=== PATIENT | female | born 1955 | race Caucasian/White ===

== ENCOUNTER → 2018-02-02 11:49 | Outpatient (CLI) | payer OTHER, MEDICAID, SELFPAY ==
[2018-02-02 13:01] LABS: Hemoglobin A1C% w Est Avg Glu 5.7 % (4.0-6.0)
[2018-02-02 13:08] LABS: Alanine Aminotransferase 34 IU/L (9-52); Albumin 4.4 g/dL (3.5-5.0); Albumin Globulin Ratio 1.6 (1.0-2.8); Alkaline Phosphatase 89 U/L (38-126); Aspartate Aminotransferase 23 IU/L (14-36); Bilirubin Total 0.5 mg/dL (0.2-1.3); Blood Urea Nitrogen 28 mg/dL (7-17); Carbon Dioxide 28 mmol/L (22-32); Chloride 103 mmol/L (98-107); Cholesterol 174 mg/dL (140-199); Estimated Glomerular Filt Rate 37.9 mL/min (>60); Globulin 2.8 g/dL (1.7-4.1); Glucose 103 mg/dL (80-110); HDL Cholesterol 43 mg/dL (40-60); HEMOLYSIS < 15 (0-50); LDL Cholesterol Calculated 104 mg/dL (<100); Potassium 3.9 mmol/L (3.4-5.1); Sodium 143 mmol/L (137-145); Total Protein 7.2 g/dL (6.3-8.2); Triglycerides 133 mg/dL (35-150)
[2018-02-02 14:43] LABS: Creatinine Urine Random 253.5 mg/dL
[2018-02-02 14:44] LABS: Microalbumi Creatinin Ratio Ur 63.5 ug/mg CR (<30); Microalbumin Urine Random 16.1 mg/dL (0-1.6)
== END ==
PROVIDERS: PCP Family Medicine; Visit Provider Family Medicine
DX: E66.01 Morbid (severe) obesity due to excess calories (principal); E66.8 Other obesity; I10 Essential (primary) hypertension; J30.89 Other allergic rhinitis; J44.9 Chronic obstructive pulmonary disease, unspecified; J98.4 Other disorders of lung; R73.03 Prediabetes
CPT/HCPCS: 36415; 80053; 80061; 82043; 82570; 83036

== ENCOUNTER → 2018-05-23 16:07 | Outpatient (CLI) | payer OTHER, MEDICAID, SELFPAY ==
[2018-05-23 17:31] LABS: Blood Urea Nitrogen 18 mg/dL (7-17); Calcium 9.6 mg/dL (8.4-10.2); Carbon Dioxide 29 mmol/L (22-32); Chloride 105 mmol/L (98-107); Estimated Glomerular Filt Rate 45.2 mL/min (>60); Glucose 95 mg/dL (80-110); HEMOLYSIS < 15 (0-50); Potassium 4.7 mmol/L (3.4-5.1); Sodium 143 mmol/L (137-145)
== END ==
PROVIDERS: PCP Family Medicine; Visit Provider Family Medicine
DX: N18.3 Chronic kidney disease, stage 3 (moderate) (principal)
CPT/HCPCS: 36415; 80048

== ENCOUNTER → 2018-09-07 12:39 | Outpatient (CLI) | payer MEDICARE, MEDICAID, SELFPAY ==
[2018-09-07 12:57] LABS: Bacteria Urine None Seen; RBC Urine None Seen (0-5/HPF)
[2018-09-07 13:46] LABS: Appearance Urine UA CLEAR; Bilirubin Urine UA NEGATIVE (NEGATIVE); Color Urine UA YELLOW; Glucose Urine UA NEGATIVE (Negative); Ketones Urine UA TRACE (NEGATIVE); Leukocyte Esterase Urine UA TRACE (NEGATIVE); Nitrite Urine UA NEGATIVE (Negative); Occult Blood Urine UA NEGATIVE (Negative); Protein Urine UA NEGATIVE (Negative); Urobilinogen Urine UA 0.2 E.U./dL (0.2); pH Urine UA 5.5 (4.5-8.0)
[2018-09-07 14:13] LABS: Creatinine Urine Random 208.8 mg/dL
[2018-09-07 14:18] LABS: Microalbumi Creatinin Ratio Ur 6.2 ug/mg CR (<30); Microalbumin Urine Random 1.3 mg/dL (0-1.6)
[2018-09-07 14:30] LABS: Amorphous Sediment Urine 2+; Culture Indicated Urine Cult Not Indicated; Granular Casts Urine 0-1/LPF; Hyaline Casts Urine 0-1/LPF; Mucus Urine 1+ (Negative); Squamous Epithelial Cell Urine 5-10 /HPF (0-5/HPF); Transitional Epi Cells Urine 0-1/HPF (0-5/HPF); WBC Urine 1-5/HPF (0-5/HPF)
== END ==
PROVIDERS: PCP Family Medicine; Visit Provider Family Medicine
DX: I12.9 Hypertensive chronic kidney disease with stage 1 through stage 4 chronic kidney disease, or unspecified chronic kidney disease (principal); N18.3 Chronic kidney disease, stage 3 (moderate); R30.0 Dysuria
CPT/HCPCS: 81001; 82043; 82570

== ENCOUNTER → 2018-10-12 15:55 | Outpatient (CLI) | payer MEDICARE, MEDICAID, SELFPAY ==
[2018-10-12 16:44] LABS: Hemoglobin A1C% w Est Avg Glu 5.5 % (4.0-6.0)
[2018-10-12 17:20] LABS: BUN Creatinine Ratio 24.2 (6-22); Blood Urea Nitrogen 29 mg/dL (7-17); Calcium 9.3 mg/dL (8.4-10.2); Carbon Dioxide 24 mmol/L (22-32); Chloride 105 mmol/L (98-107); Estimated Glomerular Filt Rate 45.1 mL/min (>60); Glucose 99 mg/dL (80-110); Potassium 4.6 mmol/L (3.4-5.1); Sodium 140 mmol/L (137-145)
[2018-10-12 17:21] LABS: HEMOLYSIS 52 (0-50)
== END ==
PROVIDERS: PCP Family Medicine; Visit Provider Family Medicine
DX: I12.9 Hypertensive chronic kidney disease with stage 1 through stage 4 chronic kidney disease, or unspecified chronic kidney disease (principal); N18.3 Chronic kidney disease, stage 3 (moderate)
CPT/HCPCS: 36415; 80048; 83036

== ENCOUNTER → 2019-01-17 14:46 | Outpatient (CLI) | payer MEDICARE, SELFPAY ==
[2019-01-17 15:21] LABS: BUN Creatinine Ratio 19.3 (6-22); Blood Urea Nitrogen 27 mg/dL (7-17); Calcium 9.9 mg/dL (8.4-10.2); Carbon Dioxide 28 mmol/L (22-32); Chloride 103 mmol/L (98-107); Estimated Glomerular Filt Rate 37.7 mL/min (>60); Glucose 100 mg/dL (80-110); HEMOLYSIS < 15 (0-50); Sodium 142 mmol/L (137-145)
[2019-01-17 15:22] LABS: Potassium 5.7 mmol/L (3.4-5.1)
== END ==
PROVIDERS: PCP Family Medicine; Visit Provider Family Medicine
DX: I10 Essential (primary) hypertension (principal); N18.3 Chronic kidney disease, stage 3 (moderate)
CPT/HCPCS: 36415; 80048

== ENCOUNTER → 2019-02-05 12:15 | Outpatient (CLI) | payer MEDICARE, SELFPAY ==
[2019-02-05 12:50] LABS: BUN Creatinine Ratio 16.2 (6-22); Blood Urea Nitrogen 21 mg/dL (7-17); Calcium 9.7 mg/dL (8.4-10.2); Carbon Dioxide 30 mmol/L (22-32); Chloride 102 mmol/L (98-107); Estimated Glomerular Filt Rate 41.1 mL/min (>60); Glucose 122 mg/dL (80-110); HEMOLYSIS < 15 (0-50); Potassium 5.2 mmol/L (3.4-5.1); Sodium 141 mmol/L (137-145)
== END ==
PROVIDERS: PCP Family Medicine; Visit Provider Family Medicine
DX: E87.5 Hyperkalemia (principal); I10 Essential (primary) hypertension
CPT/HCPCS: 36415; 80048

== ENCOUNTER → 2019-02-22 13:24 | Outpatient (CLI) | payer MEDICARE, SELFPAY ==
[2019-02-22 13:58] LABS: Blood Urea Nitrogen 24 mg/dL (7-17); Calcium 9.4 mg/dL (8.4-10.2); Carbon Dioxide 27 mmol/L (22-32); Chloride 103 mmol/L (98-107); Estimated Glomerular Filt Rate 45.1 mL/min (>60); Glucose 114 mg/dL (80-110); HEMOLYSIS < 15 (0-50); Sodium 139 mmol/L (137-145)
== END ==
PROVIDERS: PCP Family Medicine; Visit Provider Family Medicine
DX: I10 Essential (primary) hypertension (principal); N18.3 Chronic kidney disease, stage 3 (moderate)
CPT/HCPCS: 36415; 80048

== ENCOUNTER → 2019-05-28 15:53 | Outpatient (CLI) | payer MEDICARE, SELFPAY ==
[2019-05-28 16:20] LABS: Add Manual Diff / Slide Review NO; Basophils Absolute Auto 0 /uL (0-100); Basophils Percent Auto 0.7 % (0-2); Eosinophils Absolute Auto 200 /uL (0-450); Eosinophils Percent Auto 3.7 % (2-4); Hematocrit 43.4 % (36-46); Hemoglobin 14.5 g/dL (12.0-16.0); Lymphocytes Absolute Auto 1600 /uL (1100-4500); Lymphocytes Percent Auto 25.1 % (25-40); Mean Corpuscular HGB Conc 33.4 % (30-36); Mean Corpuscular Hemoglobin 29.5 PG (26-34); Mean Corpuscular Volume 88.4 fL (80-100); Monocytes Absolute Auto 400 /uL (0-900); Monocytes Percent Auto 6.5 % (3-14); Neutrophils Absolute Auto 4200 /uL (1500-7000); Platelet Count 278 X10^3/uL (150-400); Red Blood Cell Count 4.92 X10^6/uL (4.0-5.2); Red Cell Distribution Width 13.6 % (11.6-14.8); White Blood Cell Count 6.6 X10^3/uL (4.5-11.0)
[2019-05-28 16:50] LABS: Alanine Aminotransferase 28 IU/L (<35); Albumin 4.3 g/dL (3.5-5.0); Albumin Globulin Ratio 1.5 (1.0-2.8); Alkaline Phosphatase 108 U/L (38-126); Aspartate Aminotransferase 32 IU/L (14-36); BUN Creatinine Ratio 17.1 (6-22); Bilirubin Total 0.5 mg/dL (0.2-1.3); Blood Urea Nitrogen 24 mg/dL (7-17); Calcium 9.8 mg/dL (8.4-10.2); Carbon Dioxide 28 mmol/L (22-32); Chloride 100 mmol/L (98-107); Cholesterol 202 mg/dL (140-199); Estimated Glomerular Filt Rate 37.7 mL/min (>60); Globulin 2.9 g/dL (1.7-4.1); Glucose 117 mg/dL (80-110); HDL Cholesterol 40 mg/dL (40-60); HEMOLYSIS < 15 (0-50); LDL Cholesterol Calculated 119 mg/dL (<100); Potassium 4.7 mmol/L (3.4-5.1); Sodium 139 mmol/L (137-145); Total Protein 7.2 g/dL (6.3-8.2); Triglycerides 215 mg/dL (35-150)
[2019-05-28 18:39] LABS: Creatinine Urine Random 188.2 mg/dL
[2019-05-28 18:43] LABS: Microalbumi Creatinin Ratio Ur 5.3 ug/mg CR (<30)
== END ==
PROVIDERS: PCP Family Medicine; Visit Provider Family Medicine
DX: E66.01 Morbid (severe) obesity due to excess calories (principal); I10 Essential (primary) hypertension; N18.3 Chronic kidney disease, stage 3 (moderate); R73.03 Prediabetes
CPT/HCPCS: 36415; 80053; 80061; 82043; 82570; 85025

== ENCOUNTER → 2019-06-25 14:01 | Outpatient (CLI) | payer MEDICARE, SELFPAY | PROVIDERS: PCP Family Medicine; Referring Provider Family Medicine; Visit Provider Family Medicine | DX: M85.852 Other specified disorders of bone density and structure, left thigh (principal); Z78.0 Asymptomatic menopausal state; Z82.62 Family history of osteoporosis; Z87.891 Personal history of nicotine dependence | CPT/HCPCS: 77080 ==

== ENCOUNTER → 2020-06-01 16:15 | Outpatient (CLI) | payer MEDICARE, SELFPAY ==
[2020-06-01 17:21] LABS: BUN Creatinine Ratio 18.3 (6-22); Blood Urea Nitrogen 22 mg/dL (7-17); Calcium 9.4 mg/dL (8.4-10.2); Carbon Dioxide 29 mmol/L (22-32); Chloride 107 mmol/L (98-107); Estimated Glomerular Filt Rate 44.9 mL/min (>60); Glucose 102 mg/dL (80-110); HEMOLYSIS < 15 (0-50); Potassium 4.2 mmol/L (3.4-5.1); Sodium 141 mmol/L (137-145)
== END ==
PROVIDERS: PCP Family Medicine; Referring Provider Family Medicine; Visit Provider Family Medicine
DX: I10 Essential (primary) hypertension (principal); N18.30 Chronic kidney disease, stage 3 unspecified
CPT/HCPCS: 36415; 80048

== ENCOUNTER → 2020-07-10 14:14 | Outpatient (CLI) | payer MEDICARE, SELFPAY ==
[2020-07-10] MEDS: COVID-19 VACC, Ad26(JANSSEN)/PF 0.5 ML IM (14:21)
== END ==
PROVIDERS: PCP Family Medicine; Visit Provider Internal Medicine
DX: Z23 Encounter for immunization (principal)
CPT/HCPCS: 0031A; 91303

== ENCOUNTER → 2020-09-23 12:10 | Outpatient (CLI) | payer MEDICARE, SELFPAY ==
--- NOTE | 2020-09-23 12:13 | DI.RAD.S_ITS ---
PROCEDURE: XR FACIAL BONES <3V INDICATIONS: fall onto face continues to be painful TECHNIQUE: 3 views of the facial bones were acquired. COMPARISON: None. FINDINGS: Sinuses: Visualized sinuses demonstrate no air-fluid levels or mucosal thickening. Bones: No fractures identified. No suspicious bony lesions. Orbital rims and zygomatic arches appear intact. Soft tissues: No suspicious soft tissue densities. IMPRESSION: No obvious fracture. If indicated consider CT maxillofacial. Dictated by: Marcelino Barragan M.D. on 09/23/2020 at 12:52 Approved by: Marcelino Barragan M.D. on 09/23/2020 at 12:54
== END ==
LOC: LAB 12:12 → RAD 12:13
PROVIDERS: PCP Family Medicine; Referring Provider Family Medicine; Visit Provider Family Medicine
DX: S09.93XA Unspecified injury of face, initial encounter (principal); R51.9 Headache, unspecified; W10.8XXA Fall (on) (from) other stairs and steps, initial encounter
CPT/HCPCS: 70140

== ENCOUNTER → 2022-06-01 08:53 | Outpatient (CLI) | payer MEDICARE, SELFPAY ==
--- NOTE | 2022-06-01 08:55 | DI.RAD.S_ITS ---
PROCEDURE: XR HIP W PEL IF DONE LT 2V INDICATIONS: Left hip pain TECHNIQUE: Two views of the hip were acquired. COMPARISON: None. FINDINGS: Mild left hip joint space narrowing with marginal osteophytosis. No suspicious or acute bone lesion. Large calcification projecting over the midline pelvis may represent a bladder calculus. IMPRESSION: Mild left hip osteoarthritis. Suspected bladder calculus. Dictated by: Lennox Griffiths M.D. on 06/01/2022 at 12:16 Approved by: Lennox Griffiths M.D. on 06/01/2022 at 12:17
== END ==
PROVIDERS: PCP Family Medicine; Referring Provider Nurse Practitioner Family; Visit Provider Nurse Practitioner Family
DX: M25.552 Pain in left hip (principal); M16.12 Unilateral primary osteoarthritis, left hip
CPT/HCPCS: 73502

== ENCOUNTER → 2022-06-08 08:46 | Outpatient (CLI) | payer MEDICARE, SELFPAY ==
[2022-06-08 09:59] LABS: Add Manual Diff / Slide Review NO; Basophils Absolute Auto 100 /uL (0-100); Eosinophils Absolute Auto 300 /uL (0-450); Eosinophils Percent Auto 3.6 % (2-4); Hematocrit 43.3 % (36-46); Hemoglobin 14.1 g/dL (12.0-16.0); Lymphocytes Absolute Auto 1400 /uL (1100-4500); Lymphocytes Percent Auto 16.9 % (25-40); Mean Corpuscular HGB Conc 32.6 % (30-36); Mean Corpuscular Hemoglobin 28.7 PG (26-34); Mean Corpuscular Volume 87.8 fL (80-100); Monocytes Absolute Auto 600 /uL (0-900); Monocytes Percent Auto 7.5 % (3-14); Neutrophils Absolute Auto 5700 /uL (1500-7000); Platelet Count 254 X10^3/uL (150-400); Red Blood Cell Count 4.93 X10^6/uL (4.0-5.2); Red Cell Distribution Width 14.4 % (11.6-14.8); White Blood Cell Count 8.1 X10^3/uL (4.5-11.0)
[2022-06-08 10:17] LABS: Hemoglobin A1C% w Est Avg Glu 5.6 % (4.0-6.0)
[2022-06-08 10:21] LABS: Alanine Aminotransferase 16 IU/L (<35); Albumin Globulin Ratio 1.5 (1.0-2.8); Alkaline Phosphatase 85 U/L (38-126); Aspartate Aminotransferase 24 IU/L (14-36); BUN Creatinine Ratio 15.9 (6-22); Bilirubin Total 0.5 mg/dL (0.2-1.3); Blood Urea Nitrogen 18 mg/dL (7-17); Calcium 9.3 mg/dL (8.4-10.2); Carbon Dioxide 28 mmol/L (22-32); Chloride 106 mmol/L (98-107); Cholesterol 163 mg/dL (140-199); Estimated Glomerular Filt Rate 53 mL/min (>60); Globulin 2.7 g/dL (1.7-4.1); Glucose 100 mg/dL (80-110); HDL Cholesterol 48 mg/dL (40-60); HEMOLYSIS 15 (0-50); LDL Cholesterol Calculated 88 mg/dL (<100); Potassium 4.7 mmol/L (3.4-5.1); Sodium 144 mmol/L (137-145); Total Protein 6.7 g/dL (6.3-8.2); Triglycerides 137 mg/dL (35-150)
== END ==
PROVIDERS: PCP Family Medicine; Referring Provider Family Medicine; Visit Provider Family Medicine
DX: E66.01 Morbid (severe) obesity due to excess calories (principal); R73.03 Prediabetes; I10 Essential (primary) hypertension
CPT/HCPCS: 36415; 80053; 80061; 83036; 85025

== ENCOUNTER → 2022-07-08 11:23 | Outpatient (CLI) | payer MEDICARE, SELFPAY ==
--- NOTE | 2022-07-08 | DI.MG.S_ITS ---
BILATERAL DIGITAL SCREENING MAMMOGRAM 3D/2D WITH CAD: 07/08/2022 CLINICAL: Routine screening. Family history of breast cancer. Comparison is made to exams dated: 08/23/2016 mammogram and 08/12/2014 mammogram - [facility]. There are scattered areas of fibroglandular density in both breasts (category b / 25%-50% glandular tissue). Current study was also evaluated with a Computer Aided Detection (CAD) system. No significant masses, calcifications, or other findings are seen in either breast. There has been no significant interval change. IMPRESSION: NEGATIVE There is no mammographic evidence of malignancy. A 1 year screening mammogram is recommended. Based on the Tyrer Cuzick model (a risk assessment model) the patient's lifetime risk is 7.5% and her 10 year risk is 4.2%. According to the ACR, ACS, and NCCN guidelines, an annual breast MRI exam along with mammogram is recommended if the patient's lifetime risk is 20% or greater. This exam was interpreted at Station ID: [id number]. NOTE: For mammograms, a report in lay terms will be sent to the patient. Approximately 15% of breast malignancies will not be visualized mammographically. In the management of a palpable breast mass, a negative mammogram must not discourage biopsy of a clinically suspicious lesion. Electronically Signed By: Doretha verde/michele:07/08/2022 14:06:52 letter sent: Normal Exam ACR BI-RADS Category 1: Negative [id number]
--- NOTE | 2022-07-08 12:32 | DI.DEXA.S_ITS ---
Indication: osteopenia; prior fracture; Referring Provider: [facility] Study: Bone densitometry was performed. Exam Date: July 08, 2022 Accession number: [id number] Bone Density: Region BMD T-score Z-score Classification AP Spine(L1-L4) 1.101 0.5 2.5 Normal Femoral Neck (Left) 0.602 -2.2 -0.5 Osteopenia Total Hip (Left) 0.777 -1.4 0.1 Osteopenia Femoral Neck (Right) 0.685 -1.5 0.2 Osteopenia Total Hip (Right) 0.782 -1.3 0.1 Osteopenia Total Hip Mean 0.779 -1.4 0.1 Osteopenia World Health Organization criteria for BMD impression classify patients as: Normal (T-score at or above -1.0), Osteopenia (T-score between -1.0 and -2.5), or Osteoporosis (T-score at or below -2.5). 10-year Fracture Risk: FRAX not reported because: Prior hip or vertebral fracture Previous Exams: -- Region Exam Age BMD T-score BMD Change BMD Change Date g/cm2 vs Baseline vs Previous -- AP Spine (L1-L4) 07/08/2022 66 1.101 0.5 -0.053 (-4.6%)# -0.053 (-4.6%)# 06/25/2019 63 1.155 1.0 Total Hip(Left) 07/08/2022 66 0.777 -1.4 -0.031 (-3.9%)# -0.031 (-3.9%)# 06/25/2019 63 0.809 -1.1 Total Hip(Right) 07/08/2022 66 0.782 -1.3 0.021 (2.8%)# 0.021 (2.8%)# 06/25/2019 63 0.760 -1.5 -- *Denotes significance at 95% confidence level, LSC for AP Spine = 0.022 g/cm2, LSC for Total Hip = 0.027 g/cm2 # Denotes dissimilar scan types or analysis methods Impression: The patient has low bone mass, based on the Left Femoral Neck T-score. The patient has risk factors, including: previous fracture. No significant bone loss was observed. Discussion: INCREASED RISK OF FRACTURE DUE TO HISTORY OF FRACTURE. The patient's previous fracture puts the patient at high risk of a future fracture. In untreated patients, the risk of osteoporotic fracture increases approximately two-fold for each 1.0 SD decrease in T-score. Low bone density is not the only risk factor for fracture; also consider factors such as patient's age, frailty or poor health, risk of falling, risk of injury, previous osteoporotic fracture, family history of osteoporosis, cigarette smoking, low body weight, etc. Not everyone with a low trauma fracture has osteoporosis; osteomalacia and other metabolic bone disorders should also be considered. Patients who have osteoporosis should be evaluated for specific diseases and conditions (secondary causes) that may cause or contribute to bone loss and fracture risk. National Osteoporosis Foundation (NOF) recommends pharmacologic intervention for patients with a prior hip or vertebral fracture regardless of BMD T-score. The patient should follow a healthful lifestyle (good nutrition with adequate calcium and vitamin D, and appropriate weight-bearing exercise). Follow-Up: Consider a repeat BMD and Vertebral Fracture Assessment (VFA) exam in 2 years or sooner if medically necessary, to reassess this patient's status. Reported by: Mariam Chaudhry M.D. on 07/08/2022 12:49:00 PM.
== END ==
PROVIDERS: Family Provider Family Medicine; PCP Family Medicine; Referring Provider Family Medicine; Visit Provider Family Medicine
DX: Z12.31 Encounter for screening mammogram for malignant neoplasm of breast (principal); M85.852 Other specified disorders of bone density and structure, left thigh; Z13.820 Encounter for screening for osteoporosis; Z80.3 Family history of malignant neoplasm of breast; Z78.0 Asymptomatic menopausal state; Z87.311 Personal history of (healed) other pathological fracture
CPT/HCPCS: 77063; 77067; 77080

== ENCOUNTER 2022-08-02 11:15 | Outpatient (RCR) | payer MEDICARE, SELFPAY ==
--- NOTE | 2022-07-07 12:24 | PT.OIE ---
Current Diagnoses Pain in left hip (07/07/22) Past Medical History (Last Updated 07/02/22 @ 18:24 by Juventino Espinosa DO) Cervical spine disease Concussion 0 Hypertension (11/26/12) Morbid obesity with body mass index (BMI) of 40.0 to 49.9 (06/09/14) Pancreatitis, gallstone Positive FIT (fecal immunochemical test) Prediabetes (11/13/15) Past Surgical History (Last Updated 02/06/18 @ 13:06 by Meme Lam) History of tonsillectomy Normal Papanicolaou smear Status post arthroscopy Status post endoscopic retrograde cholangiopancreatography Status post laparoscopic cholecystectomy Status post laparotomy Visit Care Team Role Provider Type Juventino Espinosa DO Family Provider Physician Primary Care Provider Specialty: [facility] Address: [address] [place] [address], [facility] Email: [email or web address] Attending Provider Advanced Supervisor [employer] Referring Provider Specialty: [facility] Address: [address] [place] [address], [facility] Phone: Fax: Email: [email or web address] Physical Therapy Initial Evaluation PT-OP-A Visit Information Start: 07/07/22 09:13 Freq: Status: Active Protocol: Document 07/07/22 09:17 TH (Rec: 07/07/22 12:24 TH [id number]) Out-Patient Physical Therapy Visit Information Visit Information Visit Type Initial Evaluation Visit Start Time 09:15 Visit Stop Time 10:00 Total Visit Minutes 45 Visit Number 1 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 Pt had a serious fall over a rail resulting in t spine fractures and shoulder injury ( 2002). Shortly afterwards pt began to have bilateral hip pain. Currently pt has difficulty bending forward, ER /flexing / abd. ( in side lying) hip and hip extension in supine. Left hip pain travels from joint to groin. cleared pt. for PT. Xray neg for fx. Pt reports pain has improved since initial onset. Pt having a bone scan this week. Prior Treatments and Tests Xray left hip 06/01/22 FINDINGS: Mild left hip joint space narrowing with marginal osteophytosis. No suspicious or acute bone lesion. Large calcification projecting over the midline pelvis may represent a bladder calculus. IMPRESSION: Mild left hip osteoarthritis. Prior Functional Status Baseline Function- ADL's Independent Baseline Function- Mobility Independent Current Functional Impairments (Reported) Functional Limitations- ADL's Difficult bending forward Functional Limitations- Mobility/Gait Difficult placing full weight through left LE leading to limp Transfers difficult Functional Limitations- Other Recommended pt use FWW for now to prevent falls and to allow left hip to heal. PT-OP-F Manual Assessment Start: 07/07/22 09:13 Freq: Status: Active Protocol: Document 07/07/22 09:17 TH (Rec: 07/07/22 12:24 TH [id number]) Manual Assessments Soft Tissue Assessment Soft Tissue Mobility Assessment Palpation: Tender tfl, IT band, superior rectus femoris Pt unable to tolerate positions for special tests Test for hip labral tear when pt able to tolerate PT-OP-K Range of Motion Start: 07/07/22 09:13 Freq: Status: Active Protocol: Document 07/07/22 09:17 TH (Rec: 07/07/22 12:24 TH [id number]) Hip Goniometric Range of Motion Hip left Testing Position Sitting Flexion w/Knee Flexed 30 Abduction 20 Comments left ankle increased pronation , right leg functionally shorter than left, right hip ant rot. All left hip movements difficult with AROM PT-OP-R Modalities Start: 07/07/22 09:13 Freq: Status: Active Protocol: Document 07/07/22 09:17 TH (Rec: 07/07/22 12:24 TH [id number]) Electric Stimulation Electric Stimulation left hip Comments ESTIM + HEAT left hip in right sidelying PT-OP-T Assessment and Plan Start: 07/07/22 09:13 Freq: Status: Active Protocol: Document 07/07/22 09:17 TH (Rec: 07/07/22 12:24 TH [id number]) Physical Therapy Assessment Rehab Potential Rehabilitation Potential Good Evaluation Complexity Number of Personal Factors/Comorbidities 0 Number of Body Systems Impaired 1-2 Clinical Presentation at Evaluation Stable Goals [address] full weight through LLE. Short Term Goal (STG) Pt will be able to balance on left LE for 15 sec and one UE support. STG Duration 08/18/22 Bilingual Legal Assistant Goal (LTG) Pt will be able to balance on LLE for > 30 sec without UE support. LTG Duration 09/29/22 3 Impairment Difficulty lifting LLE up into / out of bed Short Term Goal (STG) Pt will be able to lift LLE into /out of bed with minimal use of UEs. STG Duration 08/18/22 Chcf Goal (LTG) Pt will be able to lift LLE into.out of bed without using UEs. LTG Duration 09/29/22 2 Impairment Difficult to sit<>stand Short Term Goal (STG) Pt will be able to transfer with minimal use of hands and pain <= 4/10. STG Duration 08/18/22 Chcf Goal (LTG) Pt will be able to transfer with minimal use of hands and minimal to no left hip pain. LTG Duration 09/29/22 1 Impairment Hip rom limited by pain in all planes Short Term Goal (STG) Pt will be able to actively range left hip in all planes WFL with pain <= 4/10. STG Duration 08/18/22 Chcf Goal (LTG) Pt will be able to actively range left hip in all planes WNL with minimal to no left hip pain. LTG Duration 09/29/22 Assessment Summary Assessment Pt presents with L hip pain of unknown etiology. Will test for labral tear when pt better able to tolerate. Pt will benefit from further PT to improve left hip strength and decrease left hip pain for improved ability to perform functional mobility. Physical Therapy Plan Frequency and Duration Frequency of Treatment 1-2x.wk Duration of treatment (weeks) 12 Plan of Care Start Date 07/07/22 Plan of Care End Date 09/29/22 Therapeutic Interventions Therapeutic Interventions Balance Training,Coordination Training,Gait Training,Home Exercise Program,Joint Mobilizations,Manual Therapy, Neuromuscular Re-education, Orthotic/Prosthetic Management ,Patient/Caregiver Education, Self-Care/Home Management,Soft Tissue Mobilization,Taping, Therapeutic Activities, Therapeutic Exercises Modalities Cold Pack/Ice Massage,Electric Stimulation,Hot Packs, Infrared Therapy,Traction- Mechanical,Ultrasound Next Visit Focus/Plan Next Note Type Treatment Note Next Visit Plan Pain reduction Gradual pain free strengthening
--- NOTE | 2022-07-07 12:24 | PT.OPPOC ---
Physical, Occupational & Speech Therapy At [facility] Current Diagnoses Pain in left hip (07/07/22) Visit Care Team Role Provider Type Juventino Espinosa DO Family Provider Physician Primary Care Provider Specialty: [facility] Address: [address] [place] [address], [address], [place], [address] Email: [email or web address] Attending Provider Advanced Booking [employer] Referring Provider Specialty: [facility] Address: [address], [address], [place], [address] Phone: Fax: Email: [email or web address] Plan Of Care PT-OP-T Assessment and Plan Start: 07/07/22 09:13 Freq: Status: Active Protocol: Document 07/07/22 09:17 TH (Rec: 07/07/22 12:24 TH [id number]) Physical Therapy Assessment Rehab Potential Rehabilitation Potential Good Evaluation Complexity Number of Personal Factors/Comorbidities 0 Number of Body Systems Impaired 1-2 Clinical Presentation at Evaluation Stable Goals [address] full weight through LLE. Short Term Goal (STG) Pt will be able to balance on left LE for 15 sec and one UE support. STG Duration 08/18/22 Fretted Instruments Inspector Goal (LTG) Pt will be able to balance on LLE for > 30 sec without UE support. LTG Duration 09/29/22 3 Impairment Difficulty lifting LLE up into / out of bed Short Term Goal (STG) Pt will be able to lift LLE into /out of bed with minimal use of UEs. STG Duration 08/18/22 Fretted Instruments Inspector Goal (LTG) Pt will be able to lift LLE into.out of bed without using UEs. LTG Duration 09/29/22 2 Impairment Difficult to sit<>stand Short Term Goal (STG) Pt will be able to transfer with minimal use of hands and pain <= 4/10. STG Duration 08/18/22 Fretted Instruments Inspector Goal (LTG) Pt will be able to transfer with minimal use of hands and minimal to no left hip pain. LTG Duration 09/29/22 1 Impairment Hip rom limited by pain in all planes Short Term Goal (STG) Pt will be able to actively range left hip in all planes WFL with pain <= 4/10. STG Duration 08/18/22 Fretted Instruments Inspector Goal (LTG) Pt will be able to actively range left hip in all planes WNL with minimal to no left hip pain. LTG Duration 09/29/22 Assessment Summary Assessment Pt presents with L hip pain of unknown etiology. Will test for labral tear when pt better able to tolerate. Pt will benefit from further PT to improve left hip strength and decrease left hip pain for improved ability to perform functional mobility. Physical Therapy Plan Frequency and Duration Frequency of Treatment 1-2x.wk Duration of treatment (weeks) 12 Plan of Care Start Date 07/07/22 Plan of Care End Date 09/29/22 Therapeutic Interventions Therapeutic Interventions Balance Training,Coordination Training,Gait Training,Home Exercise Program,Joint Mobilizations,Manual Therapy, Neuromuscular Re-education, Orthotic/Prosthetic Management ,Patient/Caregiver Education, Self-Care/Home Management,Soft Tissue Mobilization,Taping, Therapeutic Activities, Therapeutic Exercises Modalities Cold Pack/Ice Massage,Electric Stimulation,Hot Packs, Infrared Therapy,Traction- Mechanical,Ultrasound Next Visit Focus/Plan Next Note Type Treatment Note Next Visit Plan Pain reduction Gradual pain free strengthening Plan of Care Dates Plan of Care Start Date 07/07/22 Plan of Care End Date 09/29/22 Electronically Signed by: Kimmy Murray PT 07/07/22 [id number] If you are in agreement with this Plan of Care, please return a signed and dated copy. I have reviewed this Plan of Care and certify that the skilled therapy services above are required to meet the patient?s needs. Physician Signature Date Printed Name and Credentials Clinical Instructor Signature Printed Name and Credentials
--- NOTE | 2022-07-26 12:11 | PT.OTN ---
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 Pt had a serious fall over a rail resulting in t spine fractures and shoulder injury ( 2002). Shortly afterwards pt began to have bilateral hip pain. Currently pt has difficulty bending forward, ER /flexing / abd. ( in side lying) hip and hip extension in supine. Left hip pain travels from joint to groin. cleared pt. for PT. Xray neg for fx. Pt reports pain has improved since initial onset. Pt having a bone scan this week. Prior Treatments and Tests Xray left hip 06/01/22 FINDINGS: Mild left hip joint space narrowing with marginal osteophytosis. No suspicious or acute bone lesion. Large calcification projecting over the midline pelvis may represent a bladder calculus. IMPRESSION: Mild left hip osteoarthritis. Prior Functional Status Baseline Function- ADL's Independent Baseline Function- Mobility Independent Current Functional Impairments (Reported) Functional Limitations- ADL's Difficult bending forward Functional Limitations- Mobility/Gait Difficult placing full weight through left LE leading to limp Transfers difficult Functional Limitations- Other Recommended pt use FWW for now to prevent falls and to allow left hip to heal. PT-OP-C Subjective Start: 07/07/22 09:13 Freq: Status: Active Protocol: Document 07/26/22 11:22 TH (Rec: 07/26/22 12:11 TH [id number]) OP-PT Subjective Patient Comments Patient Comments Pt states she had been feeling pretty good until she over did it with with HEP. However , symptoms did not come back as intense as initial injury. Patient Reported Progress Improving PT-OP-F Manual Assessment Start: 07/07/22 09:13 Freq: Status: Active Protocol: Document 07/07/22 09:17 TH (Rec: 07/07/22 12:24 TH [id number]) Manual Assessments Soft Tissue Assessment Soft Tissue Mobility Assessment Palpation: Tender tfl, IT band, superior rectus femoris Pt unable to tolerate positions for special tests Test for hip labral tear when pt able to tolerate PT-OP-G Mobility & Gait Start: 07/07/22 09:13 Freq: Status: Active Protocol: Document 07/21/22 11:20 TH (Rec: 07/21/22 12:11 TH [id number]) OP Gait Assessment Comments Gait Comments Noted excessive ir bilat hips during gait, right drift due to leg length discrepancy and weak left gluteus mm. Attempted second insole ( superfeet) though pt felt unsteady. Will try second flat insole for right shoe. PT-OP-K Range of Motion Start: 07/07/22 09:13 Freq: Status: Active Protocol: Document 07/07/22 09:17 TH (Rec: 07/07/22 12:24 TH [id number]) Hip Goniometric Range of Motion Hip left Testing Position Sitting Flexion w/Knee Flexed 30 Abduction 20 Comments left ankle increased pronation , right leg functionally shorter than left, right hip ant rot. All left hip movements difficult with AROM PT-OP-Q Treatments Start: 07/07/22 09:13 Freq: Status: Active Protocol: Document 07/26/22 11:22 TH (Rec: 07/26/22 12:11 TH [id number]) Therapeutic Exercises Other Exercises SLR Comments 2 x 10 monster walk Comments with counter support 4 x 8 feet bridges Comments 2 x 10 isometric hip abd Comments 3 x 10 bilateral Gait Training Gait Activity gait with insole right Comments Assessed gait with and without second insole in right shoe. Noted increased equal weight shift with second insole. Manual Therapy Treatment Manual Techniques hip flexor off EOB Comments with massage roller to quads/ adductors Self-Care/Home Management Treatment Education Other Education Access Code: [email or web address] URL: [email or web address] Date: 07/26/2022 Prepared by: Kimmy Murray Exercises - Supine Lower Trunk Rotation - 1 x daily - 7 x weekly - 1 sets - 3 reps - 30-60 sec hold - Seated Hamstring Stretch - 1 x daily - 7 x weekly - 1 sets - 3 reps - 30-60 sec hold - Supine Hip Abduction - 1 x daily - 7 x weekly - 2-3 sets - 10 reps - Supine Quadriceps Stretch with Strap on Table - 1 x daily - 7 x weekly - 1 sets - 3 reps - 30-60 sec hold - Hooklying Isometric Clamshell - 1 x daily - 7 x weekly - 1-2 sets - 10 reps - Supine Bridge - 1 x daily - 7 x weekly - 1-2 sets - 10 reps - Active Straight Leg Raise with Quad Set - 1 x daily - 7 x weekly - 1-2 sets - 10 reps - Side Stepping with Resistance at Feet - 1 x daily - 7 x weekly PT-OP-R Modalities Start: 07/07/22 09:13 Freq: Status: Active Protocol: Document 07/07/22 09:17 TH (Rec: 07/07/22 12:24 TH [id number]) Electric Stimulation Electric Stimulation left hip Comments ESTIM + HEAT left hip in right sidelying PT-OP-T Assessment and Plan Start: 07/07/22 09:13 Freq: Status: Active Protocol: Document 07/26/22 11:22 TH (Rec: 07/26/22 12:11 TH [id number]) Physical Therapy Assessment Goals [address] full weight through LLE. Short Term Goal (STG) Pt will be able to balance on left LE for 15 sec and one UE support. STG Duration 08/18/22 Export Administrator Goal (LTG) Pt will be able to balance on LLE for > 30 sec without UE support. LTG Duration 09/29/22 3 Impairment Difficulty lifting LLE up into / out of bed Short Term Goal (STG) Pt will be able to lift LLE into /out of bed with minimal use of UEs. STG Duration 08/18/22 Export Administrator Goal (LTG) Pt will be able to lift LLE into.out of bed without using UEs. LTG Duration 09/29/22 2 Impairment Difficult to sit<>stand Short Term Goal (STG) Pt will be able to transfer with minimal use of hands and pain <= 4/10. STG Duration 08/18/22 Export Administrator Goal (LTG) Pt will be able to transfer with minimal use of hands and minimal to no left hip pain. LTG Duration 09/29/22 1 Impairment Hip rom limited by pain in all planes Short Term Goal (STG) Pt will be able to actively range left hip in all planes WFL with pain <= 4/10. STG Duration 08/18/22 Group Home Goal (LTG) Pt will be able to actively range left hip in all planes WNL with minimal to no left hip pain. LTG Duration 09/29/22 Assessment Summary Assessment Pt is making progress as demonstrated by increased left hip rom and decreased pain. Physical Therapy Plan Frequency and Duration Frequency of Treatment 1-2x.wk Duration of treatment (weeks) 12 Plan of Care Start Date 07/07/22 Plan of Care End Date 09/29/22 Therapeutic Interventions Therapeutic Interventions Balance Training,Coordination Training,Gait Training,Home Exercise Program,Joint Mobilizations,Manual Therapy, Neuromuscular Re-education, Orthotic/Prosthetic Management ,Patient/Caregiver Education, Self-Care/Home Management,Soft Tissue Mobilization,Taping, Therapeutic Activities, Therapeutic Exercises Modalities Cold Pack/Ice Massage,Electric Stimulation,Hot Packs, Infrared Therapy,Traction- Mechanical,Ultrasound Next Visit Focus/Plan Next Visit Plan Progressive hip/core strengthening.
--- NOTE | 2022-07-29 13:12 | PT.OTN ---
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 Pt had a serious fall over a rail resulting in t spine fractures and shoulder injury ( 2002). Shortly afterwards pt began to have bilateral hip pain. Currently pt has difficulty bending forward, ER /flexing / abd. ( in side lying) hip and hip extension in supine. Left hip pain travels from joint to groin. MD cleared pt. for PT. Xray neg for fx. Pt reports pain has improved since initial onset. Pt having a bone scan this week. Prior Treatments and Tests Xray left hip 06/01/22 FINDINGS: Mild left hip joint space narrowing with marginal osteophytosis. No suspicious or acute bone lesion. Large calcification projecting over the midline pelvis may represent a bladder calculus. IMPRESSION: Mild left hip osteoarthritis. Prior Functional Status Baseline Function- ADL's Independent Baseline Function- Mobility Independent Current Functional Impairments (Reported) Functional Limitations- ADL's Difficult bending forward Functional Limitations- Mobility/Gait Difficult placing full weight through left LE leading to limp Transfers difficult Functional Limitations- Other Recommended pt use FWW for now to prevent falls and to allow left hip to heal. PT-OP-C Subjective Start: 07/07/22 09:13 Freq: Status: Active Protocol: Document 07/29/22 12:24 NBM (Rec: 07/29/22 13:12 [facility] [id number]) OP-PT Subjective Patient Comments Patient Comments Pt reports today is a good day and she does not have pain right now. She has been doing her ex's, and is wearing her shoe insert. PT-OP-F Manual Assessment Start: 07/07/22 09:13 Freq: Status: Active Protocol: Document 07/07/22 09:17 TH (Rec: 07/07/22 12:24 TH [id number]) Manual Assessments Soft Tissue Assessment Soft Tissue Mobility Assessment Palpation: Tender tfl, IT band, superior rectus femoris Pt unable to tolerate positions for special tests Test for hip labral tear when pt able to tolerate PT-OP-G Mobility & Gait Start: 07/07/22 09:13 Freq: Status: Active Protocol: Document 07/21/22 11:20 TH (Rec: 07/21/22 12:11 TH [id number]) OP Gait Assessment Comments Gait Comments Noted excessive ir bilat hips during gait, right drift due to leg length discrepancy and weak left gluteus mm. Attempted second insole ( superfeet) though pt felt unsteady. Will try second flat insole for right shoe. PT-OP-K Range of Motion Start: 07/07/22 09:13 Freq: Status: Active Protocol: Document 07/07/22 09:17 TH (Rec: 07/07/22 12:24 TH [id number]) Hip Goniometric Range of Motion Hip left Testing Position Sitting Flexion w/Knee Flexed 30 Abduction 20 Comments left ankle increased pronation , right leg functionally shorter than left, right hip ant rot. All left hip movements difficult with AROM PT-OP-Q Treatments Start: 07/07/22 09:13 Freq: Status: Active Protocol: Document 07/29/22 12:24 NBM (Rec: 07/29/22 13:12 NBM [id number]) Therapeutic Exercises Supine Exercises LTR Side bilateral Reps/Minutes x10 ea Comments + feedback response Standing Exercises hip extension Standing Exercise Name added to HEP Side bilateral Resistance pink latex-free band Equipment Used hi-lo table Reps/Minutes x8 ea Comments vc for straight leg, LLE neutral foot position Other Exercises SLR Comments x 10 monster walk Other Exercise Name cue for less upper body sway Comments fwd with counter support 4 x 8 feet bridges Comments 2 x 10 isometric hip abd Other Exercise Name cue for neutral foot position Side bilateral Comments in supine 3 x 10 pink band Hip felxor stretch Comments off EOB 3 x 30 sec HS stertch Comments in sitting 3x 30 sec Self-Care/Home Management Treatment Education Patient Education Home Exercise Program Other Education Added to HEP - standing resisted hip extension - HO given. PT-OP-R Modalities Start: 07/07/22 09:13 Freq: Status: Active Protocol: Document 07/07/22 09:17 TH (Rec: 07/07/22 12:24 TH [id number]) Electric Stimulation Electric Stimulation left hip Comments ESTIM + HEAT left hip in right sidelying PT-OP-T Assessment and Plan Start: 07/07/22 09:13 Freq: Status: Active Protocol: Document 07/29/22 12:24 NBM (Rec: 07/29/22 13:12 NB [id number]) Physical Therapy Assessment Goals [address] full weight through LLE. Short Term Goal (STG) Pt will be able to balance on left LE for 15 sec and one UE support. STG Duration 08/18/22 Alf Goal (LTG) Pt will be able to balance on LLE for > 30 sec without UE support. LTG Duration 09/29/22 3 Impairment Difficulty lifting LLE up into / out of bed Short Term Goal (STG) Pt will be able to lift LLE into /out of bed with minimal use of UEs. STG Duration 08/18/22 Associate Dentist Goal (LTG) Pt will be able to lift LLE into.out of bed without using UEs. LTG Duration 09/29/22 2 Impairment Difficult to sit<>stand Short Term Goal (STG) Pt will be able to transfer with minimal use of hands and pain <= 4/10. STG Duration 08/18/22 Associate Dentist Goal (LTG) Pt will be able to transfer with minimal use of hands and minimal to no left hip pain. LTG Duration 09/29/22 1 Impairment Hip rom limited by pain in all planes Short Term Goal (STG) Pt will be able to actively range left hip in all planes WFL with pain <= 4/10. STG Duration 08/18/22 Alf Goal (LTG) Pt will be able to actively range left hip in all planes WNL with minimal to no left hip pain. LTG Duration 09/29/22 Assessment Summary Assessment Steffanie requires cues for resisted hip extension for straight leg and excessive L hip external rotation. Pt is unable to tolerate butterfly stretch due to pain in L adductors. LLE is challenged with straight leg raise ex and pt requires cues for not breathholding. Pt declines backward walking with band due to possible dizziness. Added to HEP - standing resisted hip extension - HO given. Physical Therapy Plan Frequency and Duration Frequency of Treatment 1-2x.wk Duration of treatment (weeks) 12 Plan of Care Start Date 07/07/22 Plan of Care End Date 09/29/22 Therapeutic Interventions Therapeutic Interventions Balance Training,Coordination Training,Gait Training,Home Exercise Program,Joint Mobilizations,Manual Therapy, Neuromuscular Re-education, Orthotic/Prosthetic Management ,Patient/Caregiver Education, Self-Care/Home Management,Soft Tissue Mobilization,Taping, Therapeutic Activities, Therapeutic Exercises Modalities Cold Pack/Ice Massage,Electric Stimulation,Hot Packs, Infrared Therapy,Traction- Mechanical,Ultrasound Next Visit Focus/Plan Next Visit Plan Progressive hip/core strengthening.
--- NOTE | 2022-08-02 12:44 | PT.OTN ---
Current Diagnoses Pain in left hip (08/02/22) Physical Therapy Treatment Note PT-OP-A Visit Information Start: 07/07/22 09:13 Freq: Status: Active Protocol: Document 08/02/22 11:23 TH (Rec: 08/02/22 12:44 TH [id number]) Out-Patient Physical Therapy Visit Information Visit Information Visit Type Discharge Summary Visit Start Time 11:15 Visit Stop Time 12:00 Total Visit Minutes 45 Visit Number 5 Number of MASTER OCEAN Visits 1 PT-OP-B Current Condition Start: 07/07/22 09:13 Freq: Status: Active Protocol: Document 07/07/22 09:17 TH (Rec: 07/07/22 12:24 TH [id number]) Current Condition History of Current Condition History of Current Condition Pt reports left hip pain started around the end of May. Pt had a serious fall over a rail resulting in t spine fractures and shoulder injury ( 2002). Shortly afterwards pt began to have bilateral hip pain. Currently pt has difficulty bending forward, ER /flexing / abd. ( in side lying) hip and hip extension in supine. Left hip pain travels from joint to groin. MD cleared pt. for PT. Xray neg for fx. Pt reports pain has improved since initial onset. Pt having a bone scan this week. Prior Treatments and Tests Xray left hip 06/01/22 FINDINGS: Mild left hip joint space narrowing with marginal osteophytosis. No suspicious or acute bone lesion. Large calcification projecting over the midline pelvis may represent a bladder calculus. IMPRESSION: Mild left hip osteoarthritis. Prior Functional Status Baseline Function- ADL's Independent Baseline Function- Mobility Independent Current Functional Impairments (Reported) Functional Limitations- ADL's Difficult bending forward Functional Limitations- Mobility/Gait Difficult placing full weight through left LE leading to limp Transfers difficult Functional Limitations- Other Recommended pt use FWW for now to prevent falls and to allow left hip to heal. PT-OP-C Subjective Start: 07/07/22 09:13 Freq: Status: Active Protocol: Document 08/02/22 11:23 TH (Rec: 08/02/22 12:44 TH [id number]) OP-PT Subjective Patient Comments Patient Comments Pt states she feels a little sore all over due to the weather. Patient Reported Progress Improving PT-OP-F Manual Assessment Start: 07/07/22 09:13 Freq: Status: Active Protocol: Document 07/07/22 09:17 TH (Rec: 07/07/22 12:24 TH [id number]) Manual Assessments Soft Tissue Assessment Soft Tissue Mobility Assessment Palpation: Tender tfl, IT band, superior rectus femoris Pt unable to tolerate positions for special tests Test for hip labral tear when pt able to tolerate PT-OP-G Mobility & Gait Start: 07/07/22 09:13 Freq: Status: Active Protocol: Document 07/21/22 11:20 TH (Rec: 07/21/22 12:11 TH [id number]) OP Gait Assessment Comments Gait Comments Noted excessive ir bilat hips during gait, right drift due to leg length discrepancy and weak left gluteus mm. Attempted second insole ( superfeet) though pt felt unsteady. Will try second flat insole for right shoe. PT-OP-K Range of Motion Start: 07/07/22 09:13 Freq: Status: Active Protocol: Document 07/07/22 09:17 TH (Rec: 07/07/22 12:24 TH [id number]) Hip Goniometric Range of Motion Hip left Testing Position Sitting Flexion w/Knee Flexed 30 Abduction 20 Comments left ankle increased pronation , right leg functionally shorter than left, right hip ant rot. All left hip movements difficult with AROM PT-OP-Q Treatments Start: 07/07/22 09:13 Freq: Status: Active Protocol: Document 08/02/22 11:23 TH (Rec: 08/02/22 12:44 TH [id number]) Therapeutic Exercises Other Exercises PPT Comments 1 x 10 5 sec holds pelvic floor ex Comments 1 x 10 5 sec holds monster walk Comments fwd with counter support 4 x 8 feet isometric hip abd Other Exercise Name cue for neutral foot position Hip felxor stretch Comments standing with chair on leg 2 x 30 sec Manual Therapy Treatment Manual Techniques left groin stretch Comments lef tgroin stretch with massag eroller to adductors. Self-Care/Home Management Treatment Education Patient Education Home Exercise Program Other Education Access Code: [email or web address] URL: [email or web address] Date: 08/02/2022 Prepared by: Kimmy Murray Exercises - Supine Lower Trunk Rotation - 1 x daily - 7 x weekly - 1 sets - 3 reps - 30-60 sec hold - Seated Hamstring Stretch - 1 x daily - 7 x weekly - 1 sets - 3 reps - 30-60 sec hold - Supine Hip Abduction - 1 x daily - 7 x weekly - 2-3 sets - 10 reps - Supine Quadriceps Stretch with Strap on Table - 1 x daily - 7 x weekly - 1 sets - 3 reps - 30-60 sec hold - Hooklying Isometric Clamshell - 1 x daily - 7 x weekly - 1-2 sets - 10 reps - Supine Bridge - 1 x daily - 7 x weekly - 1-2 sets - 10 reps - Active Straight Leg Raise with Quad Set - 1 x daily - 7 x weekly - 1-2 sets - 10 reps - Side Stepping with Resistance at Feet - 1 x daily - 7 x weekly - Supine Pelvic Floor Contraction - 1 x daily - 7 x weekly - 1 sets - 10 reps - 5 sec hold - Supine Posterior Pelvic Tilt - 1 x daily - 7 x weekly - 1 sets - 10 reps - 5 sec hold PT-OP-R Modalities Start: 07/07/22 09:13 Freq: Status: Active Protocol: Document 07/07/22 09:17 TH (Rec: 07/07/22 12:24 TH [id number]) Electric Stimulation Electric Stimulation left hip Comments ESTIM + HEAT left hip in right sidelying PT-OP-T Assessment and Plan Start: 07/07/22 09:13 Freq: Status: Active Protocol: Document 08/02/22 11:23 TH (Rec: 08/02/22 12:44 TH [id number]) Physical Therapy Assessment Goals [address] full weight through LLE. Short Term Goal (STG) Pt will be able to balance on left LE for 15 sec and one UE support. STG Duration 08/18/22 MET Prison Goal (LTG) Pt will be able to balance on LLE for > 30 sec without UE support. LTG Duration 09/29/22 3 Impairment Difficulty lifting LLE up into / out of bed Short Term Goal (STG) Pt will be able to lift LLE into /out of bed with minimal use of UEs. STG Duration 08/18/22 MET Finish Patcher Goal (LTG) Pt will be able to lift LLE into.out of bed without using UEs. LTG Duration 09/29/22 2 Impairment Difficult to sit<>stand Short Term Goal (STG) Pt will be able to transfer with minimal use of hands and pain <= 4/10. STG Duration 08/18/22 MET Prison Goal (LTG) Pt will be able to transfer with minimal use of hands and minimal to no left hip pain. LTG Duration 09/29/22 1 Impairment Hip rom limited by pain in all planes Short Term Goal (STG) Pt will be able to actively range left hip in all planes WFL with pain <= 4/10. STG Duration 08/18/22 MET Finish Patcher Goal (LTG) Pt will be able to actively range left hip in all planes WNL with minimal to no left hip pain. LTG Duration 09/29/22 Assessment Summary Assessment Pt has made good progress as demonstrated by resolved pain and improved functional mobility. Pt has MET all goals and has been dc from PT. Physical Therapy Plan Frequency and Duration Frequency of Treatment 1-2x.wk Duration of treatment (weeks) 12 Plan of Care Start Date 07/07/22 Plan of Care End Date 09/29/22 Therapeutic Interventions Therapeutic Interventions Balance Training,Coordination Training,Gait Training,Home Exercise Program,Joint Mobilizations,Manual Therapy, Neuromuscular Re-education, Orthotic/Prosthetic Management ,Patient/Caregiver Education, Self-Care/Home Management,Soft Tissue Mobilization,Taping, Therapeutic Activities, Therapeutic Exercises Modalities Cold Pack/Ice Massage,Electric Stimulation,Hot Packs, Infrared Therapy,Traction- Mechanical,Ultrasound
== END 2022-08-29 11:29 | disposition home or self-care (01) ==
LOC: PHYS 11:15
PROVIDERS: Family Provider Family Medicine; PCP Family Medicine; Referring Provider Nurse Practitioner Family; Visit Provider Nurse Practitioner Family
DX: M25.552 Pain in left hip (principal)
CPT/HCPCS: 97014; 97110; 97140; 97161; G0283

== ENCOUNTER → 2023-02-13 13:26 | Outpatient (CLI) | payer MEDICARE, SELFPAY ==
[2023-02-13 15:29] LABS: BUN Creatinine Ratio 12.9 (6-22); Blood Urea Nitrogen 16 mg/dL (7-17); Carbon Dioxide 30 mmol/L (22-32); Chloride 103 mmol/L (98-107); Estimated Glomerular Filt Rate 47 mL/min (>60); Glucose 107 mg/dL (80-110); HEMOLYSIS < 15 (0-50); Sodium 140 mmol/L (137-145)
== END ==
PROVIDERS: Family Provider Family Medicine; PCP Family Medicine; Referring Provider Family Medicine; Visit Provider Family Medicine
DX: N18.31 Chronic kidney disease, stage 3a (principal); I10 Essential (primary) hypertension
CPT/HCPCS: 36415; 80048

== ENCOUNTER → 2024-02-16 13:14 | Outpatient (CLI) | payer MEDICARE, SELFPAY ==
[2024-02-16 14:49] LABS: Hemoglobin A1C% w Est Avg Glu 5.4 % (4.0-6.0)
[2024-02-16 15:02] LABS: Alanine Aminotransferase 15 IU/L (<35); Albumin 4.2 g/dL (3.5-5.0); Albumin Globulin Ratio 1.4 (1.0-2.8); Alkaline Phosphatase 90 U/L (38-126); Aspartate Aminotransferase 21 IU/L (14-36); BUN Creatinine Ratio 14.5 (6-22); Bilirubin Total 0.6 mg/dL (0.2-1.3); Blood Urea Nitrogen 19 mg/dL (7-17); Calcium 9.6 mg/dL (8.4-10.2); Carbon Dioxide 27 mmol/L (22-32); Chloride 106 mmol/L (98-107); Cholesterol 208 mg/dL (140-199); Estimated Glomerular Filt Rate 44 mL/min (>60); Globulin 2.9 g/dL (1.7-4.1); Glucose 93 mg/dL (80-110); HDL Cholesterol 39 mg/dL (40-60); HEMOLYSIS < 15 (0-50); LDL Cholesterol Calculated 130 mg/dL (<100); Potassium 4.2 mmol/L (3.4-5.1); Sodium 141 mmol/L (137-145); Total Protein 7.1 g/dL (6.3-8.2); Triglycerides 196 mg/dL (35-150)
== END ==
PROVIDERS: Family Provider Family Medicine; PCP Family Medicine; Referring Provider Family Medicine; Visit Provider Family Medicine
DX: Z00.00 Encounter for general adult medical examination without abnormal findings (principal); R73.03 Prediabetes; I10 Essential (primary) hypertension; E66.01 Morbid (severe) obesity due to excess calories
CPT/HCPCS: 36415; 80053; 80061; 83036

== ENCOUNTER → 2024-08-19 13:25 | Outpatient (CLI) | payer MEDICARE, SELFPAY ==
[2024-08-19 14:18] LABS: Blood Urea Nitrogen 26 mg/dL (7-17); Calcium 9.9 mg/dL (8.4-10.2); Carbon Dioxide 28 mmol/L (22-32); Chloride 104 mmol/L (98-107); Estimated Glomerular Filt Rate 47 mL/min (>60); Glucose 102 mg/dL (80-110); HEMOLYSIS < 15 (0-50); Sodium 140 mmol/L (137-145)
== END ==
PROVIDERS: Family Provider Family Medicine; PCP Family Medicine; Referring Provider Family Medicine; Visit Provider Family Medicine
DX: N18.31 Chronic kidney disease, stage 3a (principal)
CPT/HCPCS: 36415; 80048

== ENCOUNTER → 2025-02-18 11:01 | Outpatient (CLI) | payer MEDICARE, SELFPAY ==
[2025-02-18 11:30] LABS: Add Manual Diff / Slide Review NO; Hematocrit 42.0 % (36-46); Hemoglobin 14.1 g/dL (12.0-16.0); Lymphocytes Absolute Auto 1600 /uL (1100-4500); Mean Corpuscular HGB Conc 33.5 % (30-36); Mean Corpuscular Hemoglobin 29.6 PG (26-34); Mean Corpuscular Volume 88.3 fL (80-100); Platelet Count 264 X10^3/uL (150-400)
[2025-02-18 12:40] LABS: Alanine Aminotransferase 20 IU/L (<35); Albumin 4.1 g/dL (3.5-5.0); Albumin Globulin Ratio 1.5 (1.0-2.8); Alkaline Phosphatase 95 U/L (38-126); Blood Urea Nitrogen 26 mg/dL (7-17); Calcium 9.5 mg/dL (8.4-10.2); Carbon Dioxide 20 mmol/L (22-32); Chloride 106 mmol/L (98-107); Cholesterol 176 mg/dL (140-199); Estimated Glomerular Filt Rate 49 mL/min (>60); Globulin 2.7 g/dL (1.7-4.1); Glucose 112 mg/dL (70-99); HDL Cholesterol 47 mg/dL (40-60); HEMOLYSIS < 15 (0-50); Potassium 4.2 mmol/L (3.4-5.1); Sodium 138 mmol/L (137-145); Total Protein 6.8 g/dL (6.3-8.2); Triglycerides 162 mg/dL (35-150)
[2025-02-18 15:53] LABS: Hep C Virus Ab w/Reflex Quant NEGATIVE s/c (NEGATIVE)
== END ==
PROVIDERS: Family Provider Family Medicine; PCP Family Medicine; Referring Provider Family Medicine; Visit Provider Family Medicine
DX: J44.9 Chronic obstructive pulmonary disease, unspecified (principal); E66.01 Morbid (severe) obesity due to excess calories; N18.31 Chronic kidney disease, stage 3a; I10 Essential (primary) hypertension
CPT/HCPCS: 36415; 80053; 80061; 85025; 86803

== ENCOUNTER → 2025-02-21 16:47 | Outpatient (CLI) | payer MEDICARE, SELFPAY ==
--- NOTE | 2025-02-21 16:48 | DI.MG.S_ITS ---
MM screening mammo BI: 02/21/2025. BI-RADS: 1 CLINICAL: 69-year old female for bilateral screening mammogram. Tyrer-Cuzick lifetime risk of 11.2%. No personal or first-degree family history of breast cancer. Current reported family history of breast cancer: maternal grandmother. History of ovarian cancer in one first-degree relative. PRIOR EXAMS 07/08/2022, 08/23/2016. MAMMOGRAPHY TECHNIQUE: 2D and 3D (tomosynthesis) digital mammographic views obtained, with additional images as needed for full coverage. Current study was also evaluated with a Computer Aided Detection (CAD) system. DENSITY B. There are scattered areas of fibroglandular density. MAMMOGRAPHY FINDINGS Bilateral: No suspicious mass, asymmetry, microcalcification, or other abnormality seen. IMPRESSION: * No evidence of malignancy. RECOMMENDATIONS Bilateral * Annual screening mammography. OVERALL ASSESSMENT CATEGORY BI-RADS-1: Negative. [employer] recommends annual screening mammography beginning at age 40 for women with average risk of breast cancer. ELECTRONICALLY SIGNED: Maurice Majano M.D. on 02/21/2025 at 09:12:42 PM PT Interpreting Station ID: [id number]
== END ==
PROVIDERS: Family Provider Family Medicine; PCP Family Medicine; Referring Provider Family Medicine; Visit Provider Family Medicine
DX: Z12.31 Encounter for screening mammogram for malignant neoplasm of breast (principal); Z80.3 Family history of malignant neoplasm of breast; Z80.41 Family history of malignant neoplasm of ovary
CPT/HCPCS: 77063; 77067